=== PATIENT | female | born 1945 | race Caucasian/White ===

== ENCOUNTER 2016-12-18 00:57 | Inpatient (IN) | payer SELFPAY ==
[2016-12-18 02:01] LABS: Hematocrit 37.5 % (30.3-42.9); Hemoglobin 12.6 gm/dl (10.1-14.3); Mean Corpuscular HGB Conc 34 % (30-34); Mean Corpuscular Hemoglobin 31 pg (28-32); Mean Corpuscular Volume 91 fl (79-97); Platelet Count 230 K/mm3 (140-440); Red Blood Count 4.11 M/mm3 (3.65-5.03); Red Cell Distribution Width 13.6 % (13.2-15.2); White Blood Count 12.1 K/mm3 (4.5-11.0)
[2016-12-18 02:08] LABS: INR 0.83 (0.87-1.13)
[2016-12-18] MEDS ORDERED: NACL 0.9% 1000 ML 1,000 ML IV ONE (02:22)
[2016-12-18] MEDS ORDERED: ANTIVERT PO ONE (02:22)
[2016-12-18] MEDS ORDERED: REGLAN IV ONE (02:23)
--- NOTE | 2016-12-18 02:24 | Emergency Department Report ---
ED Dizziness HPI - General Chief Complaint: Dizziness Stated Complaint: DIZZINESS/NAUSEA Time Seen by Provider: 12/18/16 01:50 Source: patient, family Mode of arrival: Ambulatory Limitations: Language Barrier - History of Present Illness Initial Comments: Pt is a 71 yr old F with a history of HTN and DM who presents with acute dizziness, SOB, and nausea. Pt recently flew from [place] to visit her daughter 1 week ago when acutely tonight she became dizzy, nauseated, and SOB. Pt has been well this week up until tonight, eating well and ambulating on her own. Otherwise no fevers, chills, vomiting, CP, abd pain, extremity swelling/edema, hemoptysis, h/o malignancy or DVT/PE - Related Data Allergies Allergy/AdvReac Type Severity Reaction Status Date / Time No Known Allergies Allergy Verified 12/18/16 01:13 ED Review of Systems ROS: Stated complaint: DIZZINESS/NAUSEA Other details as noted in HPI Comment: All other systems reviewed and negative ED Past Medical Hx - Past Medical History Previous Medical History?: Yes Hx Hypertension: Yes Hx Diabetes: Yes Additional medical history: CHOLESTEROL - Surgical History Past Surgical History?: No - Social History Smoking Status: Never Smoker Substance Use Type: None ED Physical Exam - General Limitations: Language Barrier General appearance: alert, in no apparent distress - Head Head exam: Present: atraumatic, normocephalic - Eye Eye exam: Present: normal appearance, PERRL, EOMI. Absent: conjunctival injection, nystagmus Pupils: Present: normal accommodation - ENT ENT exam: Present: normal exam, mucous membranes moist - Neck Neck exam: Present: normal inspection - Respiratory Respiratory exam: Present: normal lung sounds bilaterally. Absent: respiratory distress, wheezes, rales, rhonchi, stridor - Cardiovascular Cardiovascular Exam: Present: regular rate, normal rhythm, normal heart sounds. Absent: systolic murmur, diastolic murmur, rubs, gallop - GI/Abdominal GI/Abdominal exam: Present: soft, normal bowel sounds. Absent: distended, guarding, rebound, rigid - Rectal Rectal exam: Present: deferred - Extremities Exam Extremities exam: Present: normal inspection, full ROM, normal capillary refill. Absent: tenderness, pedal edema, joint swelling, calf tenderness - Back Exam Back exam: Present: normal inspection - Neurological Exam Neurological exam: Present: alert, oriented X3, CN II-XII intact, other ( patient could not be ambulated due to dizziness) - Psychiatric Psychiatric exam: Present: normal affect, normal mood - Skin Skin exam: Present: warm, dry, intact, normal color. Absent: rash ED Course Vital Signs 12/18/16 12/18/16 12/18/16 01:13 01:23 01:30 Temperature 98.2 F Pulse Rate 81 74 68 Respiratory 16 25 H 30 H Rate Blood Pressure 121/57 133/57 Blood Pressure [Left] O2 Sat by Pulse 100 100 100 Oximetry 12/18/16 12/18/16 12/18/16 01:44 02:00 02:30 Temperature 98.4 F Pulse Rate 66 66 71 Respiratory 28 H 27 H 29 H Rate Blood Pressure 150/63 140/60 Blood Pressure 133/57 [Left] O2 Sat by Pulse 100 98 100 Oximetry 12/18/16 12/18/16 03:00 03:30 Temperature Pulse Rate 69 Respiratory 18 Rate Blood Pressure 141/58 147/54 Blood Pressure [Left] O2 Sat by Pulse 97 Oximetry ED Medical Decision Making - Lab Data Result diagrams: 12/18/16 01:37 12/18/16 01:37 - EKG Data -: EKG Interpreted by Az - EKG Data 12/18/16 02:39 EKG 01:00, NSR at 84 bpm, QTc: 493ms, less than 1/2 RR interval, normal axis, no LVH, no STEMI - Radiology Data Radiology results: report reviewed CT head: Chronic changes noted, no intracranial abnormality seen Chest x-ray: No acute cardiopulmonary findings - Medical Decision Making 0549: Pt re-evaluated, patient reports improvement, but upon standing patient cannot ambulate at all without full assistance. Ordered CTA head and neck to rule out posterior CVA Critical care attestation.: If time is entered above; I have spent that time in minutes in the direct care of this critically ill patient, excluding procedure time. ED Disposition Condition: Stable
[2016-12-18 02:29] LABS: Anion Gap 24 mmol/L; Blood Urea Nitrogen 24 mg/dL (7-17); Calcium 9.3 mg/dL (8.4-10.2); Carbon Dioxide 20 mmol/L (22-30); Chloride 99.3 mmol/L (98-107); Glucose 265 mg/dL (65-100); Potassium 3.5 mmol/L (3.6-5.0); Sodium 140 mmol/L (137-145)
[2016-12-18 02:39] LABS: Blastocytes % (Manual) 0 %; Diff Status Complete; Platelet Estimate Consistent w Auto; RBC Morphology Normal
--- NOTE | 2016-12-18 02:51 | XRay Report ---
FINAL REPORT PROCEDURE: XR CHEST 1V AP TECHNIQUE: Chest radiograph anteroposterior view. CPT 47272 HISTORY: dyspnea COMPARISON: No prior studies are available for comparison. FINDINGS: Heart: Normal. Mediastinum/Vessels: Normal. Lungs/Pleural space: There are no infiltrates, effusions or pneumothoraces.. Bony thorax: No acute osseous abnormality. Life support devices: None. IMPRESSION: No acute cardiopulmonary abnormality.
--- NOTE | 2016-12-18 04:41 | Cat Scan Report ---
FINAL REPORT PROCEDURE: CT HEAD/BRAIN WO CON TECHNIQUE: Computerized tomography of the head was performed without contrast material. HISTORY: dizziness, unsteady gait COMPARISON: No prior studies are available for comparison. FINDINGS: Skull and scalp: Normal. Paranasal sinuses: Normal. Ventricles and subarachnoid spaces: There is no hydrocephalus. There is mild central and cortical atrophy per. Cerebrum: No evidence of hemorrhage, acute infarction or mass . Cerebellum and brainstem: No evidence of hemorrhage, acute infarction or mass. Vasculature: Normal. Comments: There is focal low density in the left frontal subcortical white matter suggesting chronic ischemic gliosis.. IMPRESSION: There are chronic changes appropriate for the patient's age. There is no hemorrhage, edema, mass, mass effect or midline shift.
[2016-12-18] MEDS ORDERED: NACL ONE (05:55)
[2016-12-18 06:32] LABS: Bilirubin,Urine NEG (Negative); Blood,Urine NEG (Negative); Ketones,Urine NEG (Negative); Leukocyte Esterase,Urine LG (Negative); Mucus,Urine FEW /HPF; Nitrite,Urine NEG (Negative); Protein,Urine <15 mg/dL mg/dL (Negative); Urobilinogen,Urine < 2.0 mg/dL (<2.0)
--- NOTE | 2016-12-18 07:38 | Cat Scan Report ---
FINAL REPORT PROCEDURE: CT ANGIO NECK TECHNIQUE: Computerized tomographic angiography of the neck was performed after the IV injection of iodinated nonionic contrast including image processing. The image data was postprocessed using 2-dimensional multiplanar reformatted (MPR) and 3-dimensional (MIP and/or volume rendered) techniques. HISTORY: dizziness, gait disturbance COMPARISON: No prior studies are available for comparison. Note: Assessment of carotid artery stenosis is based on measurement of the distal internal carotid artery diameter as the denominator for stenosis calculations and the [place] Symptomatic Carotid Endarterectomy Trial (NASCET) stenosis criteria . CPT 3100F FINDINGS: Sinuses: Normal . Non vascular cervical structures: No significant abnormality . Aortic arch: Normal . Right carotid artery: Normal . Left carotid artery: Normal . Vertebral arteries: Normal . IMPRESSION: There is no arterial stenosis or dissection.
--- NOTE | 2016-12-18 07:44 | Cat Scan Report ---
FINAL REPORT PROCEDURE: CT ANGIO HEAD TECHNIQUE: Computerized tomographic angiography of the head was performed after the IV injection of iodinated nonionic contrast including image processing. The image data was postprocessed using 2-dimensional multiplanar reformatted (MPR) and 3-dimensional (MIP and/or volume rendered) techniques. HISTORY: dizziness, gait disturbance COMPARISON: No prior studies are available for comparison. FINDINGS: Cerebrum: No evidence of hemorrhage, acute ischemia or mass. Cerebellum: No evidence of hemorrhage, acute ischemia or mass. Subarachnoid spaces and ventricles: Normal. Intracranial vessels: Carotid siphon: Normal. Anterior cerebral: Normal. Middle cerebral: Normal. Posterior cerebral:Normal. Vertebral arteries including basilar: Normal. Aneurysms: None. Dural sinuses: Normal. IMPRESSION: There is no intracranial arterial stenosis, thrombosis, dissection or aneurysm. There is no vascular malformation. There is no dural sinus thrombosis.
--- NOTE | 2016-12-18 08:23 | Emergency Department Report ---
Blank Doc - Documentation Documentation: The case was discussed with Dr. Duran for Dr. Gupta. Patient unable to ambulate. Presumed stroke per Dr. Gupta. Dr. Duran requested bridge orders.
--- NOTE | 2016-12-18 08:47 | Admit Criteria Form ---
Admission Criteria Documentation: NEUROLOGY GRG Clinical Indications for Admission to Inpatient Care (Place ' X' for any and all applicable criteria): Hospital admission is needed for appropriate care of the patient because of 1 or more of the following: [ ]I. Encephalitis [ ]II. Severe [employer] infections indicated by 1 or more of the following(1)(2)(3) : [ ]a) Intracranial abscess [ ]b) Spinal abscess or myelitis [ ]c) Tuberculous or other nonbacterial, nonviral [employer] infection(8) [ ]III. Vasculitis and 1 or more of the following(14)(15): []a) Altered mental status that is severe or persistent or other acute neurologic change []b) Psychosis []c) Seizure [ ]IV. Status epilepticus or repetitive seizures not controlled with emergent treatment [A] (7)(8) [ ]V. Altered mental status that is severe or persistent [ ]. Transient alteration in consciousness with high-risk etiology; examples include (12)(13): [ ]a) Cardiovascular source [ ]b) Cataplexy [ ]VII. Cerebral aneurysm requiring ANY ONE of the following(14): [ ]a) IV antihypertensives or vasoactive agents [ ]b) Sedation and analgesia for suspected leak [ ]c) Need for external ventricular drainage and cerebral perfusion pressure monitoring [ ]d) Emergent evaluation to determine need for surgical clipping or endovascular coiling by interventional radiology. If surgery is required ( Also use Craniotomy, Supratentorial, for Surgery of Bleeding Intracranial Aneurysm (for bleeding aneurysm) or Craniotomy, Supratentorial (for nonbleeding aneurysm) as appropriate. [ ]VIII. New-onset severe neurologic symptom requiring inpatient care indicated by ANY ONE of the following: [ ]a) Aphasia(15) [ ]b) Weakness (grade 3 or less) [ ]c) Paralysis (eg, hemiplegia) [ ]d) Spasticity(16) [ ]e) Dystonia [ ]e) Ataxia(17) [ ]f) Amnesia(18) [ ]g) Involuntary movements(19) [ ]h) Vertigo [ ] Visual loss [ ]i) Other severe neurologic finding (eg, papilledema, mass effect on imaging, myoclonus not treatable at alternative level of care (eg, observation care) [ ]IX. Guillain-Alpine syndrome(20) [ ]X. Myasthenia gravis crisis or inpatient monitoring need as indicated by 1 or more of the following(21): [ ]a) Intensive treatment (eg, course of plasmapheresis) with inadequate outpatient situation to monitor patients status [ ]b) Inadequate airway protection [ ]c) Respiratory insufficiency requiring intubation or inpatient. monitoring [ ]d) Progressive dysphagia with failure to thrive [ ]XI. Multiple sclerosis or other acute demyelinating disease requiring inpatient care as indicated by 1 or more of the following (22)(23): [ ]a) Acute severe deterioration requiring inpatient treatment (eg, IV steroids, plasmapheresis, close observation) [ ]b) Acute complication requiring inpatient care (eg, sepsis, severe decubitus, aspiration) [ ]XII.Parkinson disease requiring inpatient care (Also use Optimal Recovery Care Criteria or General Recovery Criteria as appropriate) indicated by 1 or more of the following(25): [ ]a) Infection (eg, aspiration pneumonia) not treatable at alternative level of care [ ]b Dehydration that is severe or persistent [ ]c) Life-threatening agitation or psychotic behavior not treatable on emergency, observation care, or alternative level (eg, residential) basis [ ]d) Severe medication withdrawal effects (eg, freezing, neuroleptic malignant syndrome) not responsive to emergency and observation care treatment ( as appropriate) [ ]e) Other severe manifestation not treatable at alternative level of care [ ]XII. Amyotrophic lateral sclerosis with inpatient care needs as indicated by ANY ONE of the following(26): [ ]a) Acute complications (eg, aspiration pneumonia, sepsis ) requiring inpatient care ( see other optimal Recovery Guideline as appropriate) [ ]b) Dehydration that is severe persistent AND artificial support desired [ ]c) Inadequate airway protection AND artificial support desired [ ]d) Severe ventilatory insufficiency AND artificial support desired [ ]XIII. Myasthenia gravis crisis or inpatient monitoring need as indicated by 1 or more of the following(21): [] a) Inadequate airway protection []b) Respiratory insufficiency requiring intubation or inpatient monitoring []c) Progressive dysphagia with failure to thrive []d) Intensive treatment (e.g., course of plasmapheresis) with inadequate outpatient situation to monitor patients status [ ]XIV. Multiple sclerosis or other acute demyelinating disease requiring inpatient care indicated by 1 or more of the following[C](36)(43)(44)(45)(46): []a) Acute severe deterioration requiring inpatient treatment (eg, IV steroids, plasmapheresis, close observation) []b) Acute complication requiring inpatient care (eg, sepsis, severe decubitus, aspiration) [ ]XV. Intracranial hypertension (e.g., pseudotumor cerebri) requiring inpatient care (e.g., acute visual loss, inadequate oral intake) (47)(48)(49) [ ]XVI. Parkinson disease requiring inpatient care (Also use Optimal Recovery Care Criteria or General Recovery Criteria as appropriate) indicated by 1 or more of the following(25): [] a) Infection (e.g., aspiration pneumonia) not treatable at alternative level of care []b) Volume depletion not responsive to emergency and observation care treatment (as appropriate) []c) Life-threatening agitation or psychotic behavior not treatable on emergency, observation care, or alternative level (e.g., residential) basis []d) Severe medication withdrawal effects (e.g., freezing, neuroleptic malignant syndrome) not responsive to emergency and observation care treatment (as appropriate) []e) Other severe manifestation not treatable at alternative level of care [ ]XVII. Amyotrophic lateral sclerosis with inpatient care needs as indicated by1 or more of the following(42): []a) Acute complications (eg, aspiration pneumonia, sepsis) requiring inpatient care (see other Optimal Recovery Guideline or General Recovery Guideline as appropriate) []b) Dehydration that is severe or persistent AND artificial support desired []c) Inadequate airway protection AND artificial support desired []d) Severe ventilatory insufficiency AND artificial support desired [ ]XVIII. Severe myopathy, neuropathy, or other neuromuscular disease indicated by 1 or more of the following(42)(52)(53)(54): []a ) New-onset severe diffuse weakness (eg, strength 3/5 or less) []b) Severe dysphagia []c) Dyspnea at rest or with minimal exertion (new) []d) Inadequate airway protection []e) Inadequate ventilation indicated by 1 or more of the following : i) Partial pressure of carbon dioxide greater than 44 mm Hg ( 5.9 kPa) (new) ii) Reduced peak expiratory flow rate (new) iii) Vital capacity less than 50% of predicted (less than 15 mL/kg) iv) Peak inspiratory force less negative than -30 cm H2O (- 2942 Pa) [ ]XVII.Complications of congenital or degenerative disease (eg, infection, seizures, dehydration, injury) not responsive to emergency and observation care treatment (as appropriate ) [C](16)(29)(30) [ ]XVIII.Suspected or confirmed nerve or muscle toxic injury, including ANY ONE of the following: [ ]a) Rhabdomyolysis(31) i) Acute renal failure ii) Dehydration that is severe or persistent iii) Altered mental status that is severe or persistent iv) Electrolyte abnormality that remains after emergency or observation level care ( as appropriate) [ ]b) Botulism(32) [ ]c) Other severe toxin-induced sign or symptom [ ]XIX. Neurologic trauma requiring inpatient treatment (medical) indicated by ANY ONE of the following(33)(34): [ ]a) Vital signs or neurologic signs more frequently than every 4 hours [ ]b) Hyperosmolar therapy [ ]c) Respiratory monitoring [ ]d) Intracranial pressure monitoring and treatment [ ]e) Stabilization and immobilization device placement (eg, braces, body jacket) [ ]f) Intubation & mechanical ventilation for airway protection or therapeutic hyperventilation [ ]g) Other treatment or monitoring needed that requires inpatient level of care [ ]XX.Complications of neurologic devices (eg, ventricular shunt, neurostimulator) requiring 1 or more of the following(35)(36): [ ]a) IV antibiotics with monitoring while awaiting culture results [ ]b) Monitoring for hydrocephalus [X ]XXI. Neurology condition symptom, or finding for which emergency and observation care have failed or are not considered appropriate. See General Criteria: Observation Care ISC, General Admission Criteria GRG, or Pediatric General Admission Criteria GRG guideline as appropriate. The original [facility] [employer] content created by [email or web address] has been revised. The portions of the content which have been revised are identified through the use of italic text or in bold, and [facility] has neither reviewed nor approved the modified material. All other unmodified content is copyright [facility] Please see references footnoted in the original [facility] edition 2016 Admission Criteria Met: Yes
[2016-12-18] MEDS ORDERED: BABY ASPIRIN PO SCH (09:00)
[2016-12-18] MEDS ORDERED: REGLAN PO PRN (09:36)
[2016-12-18] MEDS ORDERED: DUONEB 0.5 MG-3 MG/3 ML SOLN IH PRN (09:36)
[2016-12-18] MEDS ORDERED: SODIUM CHLORIDE FLUSH SYRINGE 10 ML IV PRN (09:36)
[2016-12-18] MEDS ORDERED: TYLENOL PO PRN (09:36)
[2016-12-18] MEDS ORDERED: PROVENTIL IH PRN (09:46)
[2016-12-18] MEDS ORDERED: D50W (25GM) IV PRN (09:52)
--- NOTE | 2016-12-18 09:52 | History and Physical Report ---
History of Present Illness Date of examination: 12/18/16 Date of admission: 12/18/16 08:23 Chief complaint: Dizziness History of present illness: Granddaughter Hawa was the public health physician Patient is a 71-year-old Kitt[place]-speaking woman from [place] with history of type 2 diabetes mellitus and hypertension who presents with constant severe acute nonradiating dizziness that started around midnight associated with unsteady gait, nausea and shortness of breath. She did have mild intermittent bitemporal headaches without any visual disturbances or palpitation or syncope. She denies chest pain or vomiting fever or chills. Past medical history: As HPI Past surgical history: Bowel surgery in [place] Social history: Denies smoking, drugs, alcohol Family history: She denies ROS: as HPI and all other ROS reviewed and negative. Medications and Allergies Allergies Allergy/AdvReac Type Severity Reaction Status Date / Time No Known Allergies Allergy Verified 12/18/16 01:13 Active Meds: Active Medications Acetaminophen (Tylenol) 650 mg PO Q4H PRN PRN Reason: Pain, Mild (1-3) Albuterol/Ipratropium (Duoneb 0.5 Mg-3 Mg/3 Ml Soln) 1 ampul IH Q6HRT PRN PRN Reason: Shortness Of Breath Aspirin (Baby Aspirin) 162 mg PO ONCE MARY Aspirin (Aspirin) 325 mg PO QDAY MARY Heparin Sodium (Porcine) (Heparin) 5,000 unit SUB-Q Q12HR MARY Metoclopramide HCl (Reglan) 10 mg PO Q6H PRN PRN Reason: Nausea And Vomiting Simvastatin (Zocor) 20 mg PO QHS MARY Sodium Chloride (Sodium Chloride Flush Syringe 10 Ml) 10 ml INJ PRN PRN PRN Reason: LINE FLUSH Exam - Physical Exam Narrative exam: GEN: WDWN, NAD, AWAKE, ALERT, ORIENTATED x 3 CVS: RRR, NORMAL S1S2 LUNGS/CHEST: CTA B, NORMAL CHEST EXPANSION B, GOOD AIR ENTRY B ABD: SOFT, NTND, GBS, NO REBOUND OR GUARDING EXT/SKIN: NO SIGNIFICANT EDEMA OR RASH MSK: FROM X 4 EXTREMITIES NEURO: CN 2-12 GROSSLY INTACT, NO FOCAL DEFICITS, no nystagmus PSY: CALM - Constitutional Vitals: Temp Pulse Resp BP Pulse Ox 98.4 F 63 20 134/63 98 12/18/16 01:44 12/18/16 06:30 12/18/16 06:30 12/18/16 06:30 12/18/16 06:30 Results - Labs CBC & Chem 7: 12/18/16 01:37 12/18/16 01:37 Assessment and Plan Carolina Shaikh at bedside was the public health physician Patient is a 71-year-old [place]-speaking woman from [place] with history of type 2 diabetes mellitus and hypertension who presents with constant severe acute nonradiating dizziness that started around midnight, described as head spinning associated with unsteady gait, nausea and shortness of breath. She did have mild intermittent bitemporal headaches without any visual disturbances or palpitation or syncope. She denies chest pain or vomiting fever or chills. She was found to have a respiration rate of 25, white blood cell count 12.1, d- dimer 261.9 which is high, potassium 3.5, blood glucose of 265, chest x-ray read as no acute findings, CT head reported as chronic changes, CTA of the head unremarkable goal, CTA of the neck unremarkable. Urinalysis is positive for leukocyte esterase but are marked for the WBCs, order urine culture -Dizziness appears to be benign vertigo, given Antivert which helped. When I sat patient up to listen to her lungs she states she gets dizzy: Order MRI echocardiogram, using stroke protocol, treat with aspirin and statin -Tachypnea and elevated d-dimer with recent travel from [place]: CTA rule out PE , pre-mediate with NSS because she already had CTA head and neck -Uncontrolled diabetes mellitus2: Add Sliding scale and monitor closely -Hypokalemia: Replace and follow closely -Leukocytosis, suspect reactive, check UA ctx, blood ctx -DVT prophylaxis: Add subcutaneous heparin
[2016-12-18] MEDS ORDERED: NACL 0.9% 500 ML 500 ML IV ONE (10:00)
[2016-12-18] MEDS: NOVOLOG SUB-Q SCH ×3 (13:18→22:33)
--- NOTE | 2016-12-18 14:16 | Cat Scan Report ---
CTA chest: PA protocol. History: Pain. Findings: No evidence of aneurysm or pulmonary embolism. No mediastinal mass or adenopathy. No pleural pericardial effusion. Normal lung parenchyma. No discrete nodularity or consolidation. Impression: No evidence of pulmonary embolism. No acute lung changes.
--- NOTE | 2016-12-18 15:15 | Magnetic Resonance Report ---
MRI scan of brain: History: Stroke. Technique: Multiplanar, multisequence images were obtained without contrast injection. Findings: No evidence of restricted diffusion. Ventricles are normal in size and midline in location. No evidence of acute ischemia, hemorrhage or mass. No extra-axial fluid collection. Periventricular and subcortical areas of hyperintensity. No corresponding restricted diffusion. Normal sinuses and mastoid air cells. Impression: No acute intracranial abnormality. Small vessel ischemic changes.
[2016-12-18] MEDS ORDERED: ZOCOR PO SCH (22:00)
[2016-12-19 06:28] LABS: Hematocrit 37.1 % (30.3-42.9); Hemoglobin 12.9 gm/dl (10.1-14.3); Mean Corpuscular HGB Conc 35 % (30-34); Mean Corpuscular Hemoglobin 32 pg (28-32); Mean Corpuscular Volume 92 fl (79-97); Platelet Count 226 K/mm3 (140-440); Red Blood Count 4.04 M/mm3 (3.65-5.03); Red Cell Distribution Width 13.8 % (13.2-15.2); White Blood Count 8.3 K/mm3 (4.5-11.0)
[2016-12-19 06:44] LABS: Anion Gap 19 mmol/L; BUN/Creatinine Ratio 28.75; Blood Urea Nitrogen 23 mg/dL (7-17); Calcium 8.6 mg/dL (8.4-10.2); Carbon Dioxide 25 mmol/L (22-30); Chloride 106.3 mmol/L (98-107); Cholesterol 242 mg/dL (50-199); Glucose 118 mg/dL (65-100); HDL Cholesterol 52 mg/dL (40-59); LDL Cholesterol,Direct 162 mg/dL (50-130); Potassium 3.7 mmol/L (3.6-5.0); Sodium 147 mmol/L (137-145); Triglycerides 141 mg/dL (2-149)
[2016-12-19] MEDS: NOVOLOG SUB-Q SCH ×2 (08:16→12:49)
--- NOTE | 2016-12-19 09:09 | Discharge Summary ---
Providers - Providers Date of Admission: 12/18/16 08:23 Date of discharge: 12/19/16 Attending physician: FLOR PINA MD 12/18/16 09:36 Consult to Case Management [CONS] Routine Services Needed at Discharge: Physical Therapy Notified:: pt Consult to Dietitian/Nutrition [CONS] Routine Physician Instructions: Reason For Exam: Reason for Consult: Nutrition Recommendations Reason for Consult: Diet education Occupational Therapy Evaluate and Treat [CONS] Routine Comment: Reason For Exam: Neuro deficits Physical Therapy Evaluation and Treat [CONS] Routine Comment: Reason For Exam: Neuro deficits Primary care physician: [employer] Hospitalization Reason for admission: dizzines Condition: Stable Hospital course: Patient is a 71-year-old [place]ese-speaking woman from [place] and just came to the [place]. With history of type 2 diabetes mellitus and hypertension who presents with constant severe acute nonradiating dizziness that started around midnight, described as head spinning associated with unsteady gait, nausea and shortness of breath. This appeared to have an orthostatic component to it due to movement associated with it. Although her orthostatic vital signs were negative. The patient's symptoms did improve during hospitalization. In the beginning she did have mild intermittent bitemporal headaches without any visual disturbances or palpitation or syncope. She denies chest pain or vomiting fever or chills. She was found to have a respiration rate of 25, white blood cell count 12.1, d-dimer 261.9 which is high, potassium 3.5, blood glucose of 265, chest x-ray read as no acute findings, CT head reported as chronic changes, CTA of the head unremarkable goal, CTA of the neck unremarkable. Urinalysis is positive for leukocyte esterase but are marked for the WBCs, order urine culture MRI of the brain was also done and those are remarkable. Patient's blood sugar did improve which could also have been an associated symptoms with his dizziness I did discuss with the patient and family via Granddaughter Hawa at bedside who was air defense artillery officer as the family did not want to use the phone interpretation line. She is clinically stable at this point for discharge of asked that they monitor her blood sugar closely. And treat, also follow-up with the primary care physician. There was no overt evidence of infection and the elevated leukocytosis resolved rather quickly. Patient improved faster than expected in a stable for discharge. I did discuss with the family and the diagnosis of dyslipidemia for which was spent in the patient's simvastatin. They're also to record daily blood sugars noted and discussed with the primary care physician. She will also be started on meclizine as this did improve her symptoms. Discharge diagnosis -Vertigo. -Uncontrolled diabetes mellitus2: -Hypokalemia -Hypertension -Leukocytosis -Dyslipidemia Disposition: DC-01 TO HOME OR SELFCARE Time spent for discharge: 35 mins Core Measure Documentation - Palliative Care Palliative Care/ Comfort Measures: Not Applicable - Core Measures Any of the following diagnoses?: none - VTE Discharge Requirements Deep Vein Thrombosis/Pulmonary Embolism Present on Admission: No Exam - Physical Exam Narrative exam: VITAL SIGNS: Reviewed. GENERAL: The patient appeared well nourished and normally developed. Vital signs as documented. [place]ese-speaking HEAD: No signs of head trauma. EYES: Pupils are equal. Extraocular motions intact. EARS: Hearing grossly intact. MOUTH: Oropharynx is normal. NECK: No adenopathy, no JVD. CHEST: Chest with clear breath sounds bilaterally. No wheezes, rales, or rhonchi. CARDIAC: Regular rate and rhythm. S1 and S2, without murmurs, gallops, or rubs. VASCULAR: No Edema. Peripheral pulses normal and equal in all extremities. ABDOMEN: Soft, without detectable tenderness. No sign of distention. No rebound or guarding, and no masses palpated. Bowel Sounds normal. MUSCULOSKELETAL: Good range of motion of all major joints. Extremities without clubbing, cyanosis or edema. NEUROLOGIC EXAM: Alert and oriented x 3. No focal sensory or strength deficits. Speech normal. Follows commands. PSYCHIATRIC: Mood normal. SKIN: Age-appropriate wrinkles blemishes - Constitutional Vitals: Temp Pulse Resp BP Pulse Ox 98.7 F 62 20 156/84 96 12/19/16 04:00 12/19/16 04:00 12/19/16 04:00 12/19/16 04:00 12/19/16 04:00 Plan Activity: advance as tolerated, fall precautions Diet: low fat, diabetic Special Instructions: record blood sugar diary Follow up with: PRIMARY CARE, [Primary Care Provider] - 7 Days Prescriptions: Simvastatin [Zocor TAB] 20 mg PO QHS #30 tablet Meclizine [Antivert] 25 mg PO TID PRN #14 tablet PRN Reason: Vertigo
[2016-12-19] MEDS ORDERED: ASPIRIN PO SCH (10:00)
[2016-12-19] MEDS ORDERED: HEPARIN SUB-Q SCH (10:00)
[2016-12-19 10:08] VITALS: BP 120/59
[2016-12-19] MEDS ORDERED: NACL 0.9% 500 ML 500 ML IV ONE (11:02)
[2016-12-19] MEDS ORDERED: PNEUMOVAX 23 IM ONE (12:00)
== END 2016-12-19 15:25 | disposition home or self-care (01) | DRG 149 ==
LOC: ED 00:57 → 3A 08:23
PROVIDERS: ADMIT Internal Medicine; ATTEND Internal Medicine
PROC: 3E0234Z Introduction of Serum, Toxoid and Vaccine into Muscle, Percutaneous Approach (ICD-10-PCS; principal; 2016-12-18)
DX: R42 Dizziness and giddiness (principal); I10 Essential (primary) hypertension; E11.9 Type 2 diabetes mellitus without complications; E78.00 Pure hypercholesterolemia, unspecified; R06.82 Tachypnea, not elsewhere classified; E87.6 Hypokalemia; D72.829 Elevated white blood cell count, unspecified; R26.81 Unsteadiness on feet; E78.5 Hyperlipidemia, unspecified; Z23 Encounter for immunization
CPT/HCPCS: 36415; 70450; 70496; 70498; 70551; 71010; 71275; 80048; 80061; 81001; 82962; 83036; 83880; 84484; 85007; 85025; 85027; 85379; 85610; 85730; 87040; 87076; 87086; 87186; 90732; 93005; 93010; 93306; 93880; 96361; 96374; J1644; J1815; J2765; J7030; J7040; Q9967